=== PATIENT | female | born 1935 | race Caucasian/White ===

== ENCOUNTER → 2019-09-29 | Outpatient (CLI) | payer MEDICARE | LOC: LB.CLINIC 14:05 | PROVIDERS: ATTEND Nurse Practitioner Family | DX: I25.10 Atherosclerotic heart disease of native coronary artery without angina pectoris (principal); R42 Dizziness and giddiness; R00.1 Bradycardia, unspecified; I21.9 Acute myocardial infarction, unspecified | CPT/HCPCS: 36415; 80048; 93005 ==

== ENCOUNTER → 2019-09-30 | Outpatient (CLI) | payer MEDICARE ==
--- NOTE | 2019-09-30 13:12 | US ---
DATE OF SERVICE: 09/30/19 CLINICAL DATA: Dizziness and giddiness. DUPLEX CAROTID ULTRASOUND: RIGHT CAROTID SYSTEM: There is antegrade flow. There is mild atherosclerotic plaquing throughout the carotid system. The flow velocities are within normal limits. The findings are consistent with 0%-50% stenosis. LEFT CAROTID SYSTEM: There is antegrade flow. There is atherosclerotic plaquing throughout the carotid system. The peak systolic velocity is elevated measuring 159 cm/second in the mid-ICA. The PDV is elevated measuring 42 cm/ second. The systolic velocity ratio is also elevated measuring 2.2. The findings are consistent with 50-75% stenosis. VERTEBRAL SYSTEM: There is bilateral antegrade vertebral flow. [id number] MTDD
== END ==
LOC: LB.US 10:33
PROVIDERS: ATTEND Nurse Practitioner Family
DX: R42 Dizziness and giddiness (principal); I65.23 Occlusion and stenosis of bilateral carotid arteries
CPT/HCPCS: 93880

== ENCOUNTER 2020-07-30 12:07 | Inpatient (IN) | payer MEDICARE, OTHER ==
[2020-07-30] MEDS ORDERED: Sodium Chloride 0.9% 1,000 ML IV SCH (13:15)
--- NOTE | 2020-07-30 13:47 | EDM.PDOC ---
ED HPI GENERAL MEDICAL PROBLEM - General Chief Complaint: General Stated Complaint: ILL Time Seen by Provider: 07/30/20 12:55 Source of Information: Reports: Patient, EMS - History of Present Illness INITIAL COMMENTS - FREE TEXT/NARRATIVE: Known COVID positive patient presents with ongoing weakness. Shestates she has not had an appetite for several days and started having small amounts of diarrhea today. Denies any CP, SOB, abd pain, sore throat, rash, fever, chills, HINOJOSA, or N/V. Started bactrim for UTI, but has not taken any meds for a few days. Severity: Mild Associated Symptoms: Reports: Cough, Loss of Appetite. Denies: Chest Pain, Diaphoresis, Fever/Chills, Headaches, Nausea/Vomiting Bilateral Back Pain Score (Numeric/FACES): 3 - Related Data Allergies Allergy/AdvReac Type Severity Reaction Status Date / Time No Known Allergies Allergy Verified 07/30/20 12:58 Home Meds: Home Meds Aspirin [Children's Aspirin] 81 mg PO DAILY 10/17/13 [History] atorvaSTATin [Lipitor] 40 mg PO QPM 10/17/13 [History] carBAMazepine [Carbamazepine] 100 mg PO BID 10/17/13 [History] Albuterol Sulfate [Proair Hfa] 2 puff IH Q4HR PRN 12/24/15 [History] ALPRAZolam [Alprazolam] 0.5 mg PO BID 07/30/20 [History] Metoprolol Succinate [Toprol XL] 12.5 mg PO DAILY 07/30/20 [History] Multivitamin [Multi-Day Vitamins] 1 each PO DAILY 07/30/20 [History] Umeclidinium Brm/Vilanterol Tr [Anoro Ellipta 62.5-25 MCG] 62.5 mcg IH DAILY PRN 07/30/20 [History] ED ROS GENERAL - Review of Systems Review Of Systems: See Below Constitutional: Reports: Weakness, Fatigue, Decreased Appetite HEENT: Reports: No Symptoms Respiratory: Reports: Cough. Denies: Shortness of Breath, Wheezing Cardiovascular: Reports: No Symptoms. Denies: Edema, Orthopnea GI/Abdominal: Reports: Diarrhea, Decreased Appetite. Denies: Black Stool, Bloody Stool, Nausea, Vomiting : Reports: No Symptoms, Other (known UTI) Musculoskeletal: Reports: No Symptoms Skin: Reports: No Symptoms Neurological: Reports: No Symptoms Psychiatric: Reports: Depression ED EXAM, GENERAL - Physical Exam Exam: See Below Exam Limited By: No Limitations General Appearance: Alert, No Apparent Distress Eye Exam: Bilateral Eye: PERRL Ears: Normal External Exam, Normal Canal (cerumen occluding, denies pain) Nose: Normal Inspection Throat/Mouth: Normal Inspection, Normal Lips, Normal Oropharynx, Normal Voice, No Airway Compromise Head: Atraumatic Neck: Normal Inspection, Full Range of Motion Respiratory/Chest: No Respiratory Distress, Lungs Clear, Normal Breath Sounds Cardiovascular: Normal Peripheral Pulses, Regular Rate, Rhythm, No Edema, No JVD, Diastolic Murmur Peripheral Pulses: 3+: Radial (L), Radial (R), Posterior Tibial (L), Posterior Tibial (R), Dorsalis Pedis (L), Dorsalis Pedis (R) GI/Abdominal: Normal Bowel Sounds, Soft, Non-Tender (Female) Exam: Deferred Rectal (Female) Exam: Deferred Back Exam: Normal Inspection, Full Range of Motion. No: CVA Tenderness (R), CVA Tenderness (L) Extremities: Normal Inspection, Normal Range of Motion, Non-Tender, No Pedal Edema, Normal Capillary Refill Neurological: Alert, Oriented, Normal Cognition Psychiatric: Depressed Mood Skin Exam: Warm, Dry, Intact Lymphatic: No Adenopathy Course - Vital Signs Last Recorded V/S: Last Vital Signs Temp 98.3 F 07/30/20 15:37 Pulse 74 07/30/20 15:37 Resp 18 07/30/20 15:37 BP 127/80 07/30/20 15:37 Pulse Ox 98 07/30/20 15:37 - Orders/Labs/Meds Orders: Active Orders 24 hr Category Date Time Status EKG Documentation Completion [RC] ASDIRECTED Care 07/30/20 13:11 Active CULTURE BLOOD [BC] Stat Lab 07/30/20 13:45 Received Sodium Chloride 0.9% [Normal Saline] 1,000 ml Med 07/30/20 13:15 Active IV ASDIRECTED Medication Orders Enoxaparin Sodium (Lovenox) 40 mg SUBCUT Q12H [facility] Last Admin: 07/30/20 16:06 Dose: 40 mg Documented by: JOHN Sodium Chloride (Normal Saline) 1,000 mls @ 50 mls/hr IV ASDIRECTED [facility]ARRICK Last Admin: 07/30/20 14:24 Dose: 50 mls/hr Documented by: JOHN Doxycycline Hyclate 100 mg/ (Sodium Chloride) 100 mls @ 100 mls/hr IV Q12HR [facility] Ceftriaxone Sodium 1 gm/ (Sodium Chloride) 50 mls @ 100 mls/hr IV Q24H [facility] Last Admin: 07/30/20 16:06 Dose: 100 mls/hr Documented by: JOHN Labs: Laboratory Tests 07/30/20 07/30/20 07/30/20 Range/Units 13:06 13:10 13:10 WBC 7.5 (4.0-11.0) K/uL RBC 4.45 (3.80-5.80) M/uL Hgb 13.3 (11.5-16.5) g/dL Hct 37.9 (37.0-47.0) % MCV 85 (76-96) fL MCH 29.9 (27.0-32.0) pg MCHC 35.1 H (31.0-35.0) g/dL RDW 13.2 (11.0-16.0) % Plt Count 363 D (150-500) K/uL MPV 9.8 (6.0-10.0) fL Neut % (Auto) 77.7 H (45.0-70.0) % Lymph % (Auto) 12.4 L (20.0-40.0) % [place] % (Auto) 9.2 (3.0-10.0) % Eos % (Auto) 0.4 L (1.0-5.0) % Baso % (Auto) 0.3 (0.0-0.5) % Neut # (Auto) 5.82 (2.00-7.50) K/uL Lymph # (Auto) 0.93 L (1.50-4.00) K/uL [place] # (Auto) 0.69 (0.20-0.80) K/uL Eos # (Auto) 0.03 L (0.04-0.40) K/uL Baso # (Auto) 0.02 (0.02-0.10) K/uL ESR (0-30) mm/hr APTT (24.4-33.2) SECONDS D-Dimer, Quantitative (0-400) ng/mL Sodium 137 (136-145) mmol/L Potassium 3.4 L D (3.5-5.1) mmol/L Chloride 101 (98-107) mmol/L Carbon Dioxide 24.0 (21.0-32.0) mmol/L Anion Gap 15.4 H (5.0-15.0) mmol/L BUN 13 D (8-26) mg/dL Creatinine 1.08 H D (0.55-1.02) mg/dL Est Cr Clr Drug Dosing 31.69 mL/min Estimated GFR (MDRD) 48 L (>60) MLS/MIN BUN/Creatinine Ratio 12.0 (6-25) Glucose 103 H (74-100) mg/dL Lactic Acid (0.4-2.0) mmol/L Calcium 8.8 (8.5-10.1) mg/dL Total Bilirubin 0.5 D (0.0-1.0) mg/dL AST 25 (15-37) U/L ALT 33 (12-78) U/L Alkaline Phosphatase 83 (46-116) U/L Troponin I (0.000-0.060) ng/mL C-Reactive Protein (0.0-3.0) mg/L B-Natriuretic Peptide (0-450) pg/mL Total Protein 7.3 (6.4-8.2) g/dL Albumin 2.9 L (3.4-5.0) g/dL Globulin 4.4 H (2.2-4.2) g/dL Albumin/Globulin Ratio 0.7 L (0.8-2.0) Urine Color Yellow Urine Appearance Clear (CLEAR) Urine pH 7.0 (5.0-8.0) Ur Specific [place] 1.015 (1.003-1.030) Urine Protein Trace H (NEGATIVE) mg/dL Urine Glucose (UA) Negative (NEGATIVE) mg/dL Urine Ketones 15 H (NEGATIVE) mg/dL Urine Occult Blood Trace-intact H (NEGATIVE) Urine Nitrite Negative (NEGATIVE) Urine Bilirubin Negative (NEGATIVE) Urine Urobilinogen 0.2 (0.2-1.0) E.U./dL Ur Leukocyte Esterase Trace H (NEGATIVE) Urine RBC 0-5 H /HPF Urine WBC 10-20 H /HPF Urine WBC Clumps Few /HPF Ur Squamous Epith Cells Moderate /HPF Urine Bacteria Few /HPF 07/30/20 07/30/20 07/30/20 Range/Units 13:10 13:20 14:30 WBC (4.0-11.0) K/uL RBC (3.80-5.80) M/uL Hgb (11.5-16.5) g/dL Hct (37.0-47.0) % MCV (76-96) fL MCH (27.0-32.0) pg MCHC (31.0-35.0) g/dL RDW (11.0-16.0) % Plt Count (150-500) K/uL MPV (6.0-10.0) fL Neut % (Auto) (45.0-70.0) % Lymph % (Auto) (20.0-40.0) % [place] % (Auto) (3.0-10.0) % Eos % (Auto) (1.0-5.0) % Baso % (Auto) (0.0-0.5) % Neut # (Auto) (2.00-7.50) K/uL Lymph # (Auto) (1.50-4.00) K/uL [place] # (Auto) (0.20-0.80) K/uL Eos # (Auto) (0.04-0.40) K/uL Baso # (Auto) (0.02-0.10) K/uL ESR 67 H (0-30) mm/hr APTT (24.4-33.2) SECONDS D-Dimer, Quantitative (0-400) ng/mL Sodium (136-145) mmol/L Potassium (3.5-5.1) mmol/L Chloride (98-107) mmol/L Carbon Dioxide (21.0-32.0) mmol/L Anion Gap (5.0-15.0) mmol/L BUN (8-26) mg/dL Creatinine (0.55-1.02) mg/dL Est Cr Clr Drug Dosing mL/min Estimated GFR (MDRD) (>60) MLS/MIN BUN/Creatinine Ratio (6-25) Glucose (74-100) mg/dL Lactic Acid 1.0 (0.4-2.0) mmol/L Calcium (8.5-10.1) mg/dL Total Bilirubin (0.0-1.0) mg/dL AST (15-37) U/L ALT (12-78) U/L Alkaline Phosphatase (46-116) U/L Troponin I < 0.017 D (0.000-0.060) ng/mL C-Reactive Protein (0.0-3.0) mg/L B-Natriuretic Peptide 1210 H (0-450) pg/mL Total Protein (6.4-8.2) g/dL Albumin (3.4-5.0) g/dL Globulin (2.2-4.2) g/dL Albumin/Globulin Ratio (0.8-2.0) Urine Color Urine Appearance (CLEAR) Urine pH (5.0-8.0) Ur Specific [place] (1.003-1.030) Urine Protein (NEGATIVE) mg/dL Urine Glucose (UA) (NEGATIVE) mg/dL Urine Ketones (NEGATIVE) mg/dL Urine Occult Blood (NEGATIVE) Urine Nitrite (NEGATIVE) Urine Bilirubin (NEGATIVE) Urine Urobilinogen (0.2-1.0) E.U./dL Ur Leukocyte Esterase (NEGATIVE) Urine RBC /HPF Urine WBC /HPF Urine WBC Clumps /HPF Ur Squamous Epith Cells /HPF Urine Bacteria /HPF 07/30/20 07/30/20 07/30/20 Range/Units 14:30 14:32 14:45 WBC (4.0-11.0) K/uL RBC (3.80-5.80) M/uL Hgb (11.5-16.5) g/dL Hct (37.0-47.0) % MCV (76-96) fL MCH (27.0-32.0) pg MCHC (31.0-35.0) g/dL RDW (11.0-16.0) % Plt Count (150-500) K/uL MPV (6.0-10.0) fL Neut % (Auto) (45.0-70.0) % Lymph % (Auto) (20.0-40.0) % [place] % (Auto) (3.0-10.0) % Eos % (Auto) (1.0-5.0) % Baso % (Auto) (0.0-0.5) % Neut # (Auto) (2.00-7.50) K/uL Lymph # (Auto) (1.50-4.00) K/uL [place] # (Auto) (0.20-0.80) K/uL Eos # (Auto) (0.04-0.40) K/uL Baso # (Auto) (0.02-0.10) K/uL ESR (0-30) mm/hr APTT 24.1 L (24.4-33.2) SECONDS D-Dimer, Quantitative 1370 H (0-400) ng/mL Sodium (136-145) mmol/L Potassium (3.5-5.1) mmol/L Chloride (98-107) mmol/L Carbon Dioxide (21.0-32.0) mmol/L Anion Gap (5.0-15.0) mmol/L BUN (8-26) mg/dL Creatinine (0.55-1.02) mg/dL Est Cr Clr Drug Dosing mL/min Estimated GFR (MDRD) (>60) MLS/MIN BUN/Creatinine Ratio (6-25) Glucose (74-100) mg/dL Lactic Acid (0.4-2.0) mmol/L Calcium (8.5-10.1) mg/dL Total Bilirubin (0.0-1.0) mg/dL AST (15-37) U/L ALT (12-78) U/L Alkaline Phosphatase (46-116) U/L Troponin I (0.000-0.060) ng/mL C-Reactive Protein 160.7 H (0.0-3.0) mg/L B-Natriuretic Peptide (0-450) pg/mL Total Protein (6.4-8.2) g/dL Albumin (3.4-5.0) g/dL Globulin (2.2-4.2) g/dL Albumin/Globulin Ratio (0.8-2.0) Urine Color Urine Appearance (CLEAR) Urine pH (5.0-8.0) Ur Specific [place] (1.003-1.030) Urine Protein (NEGATIVE) mg/dL Urine Glucose (UA) (NEGATIVE) mg/dL Urine Ketones (NEGATIVE) mg/dL Urine Occult Blood (NEGATIVE) Urine Nitrite (NEGATIVE) Urine Bilirubin (NEGATIVE) Urine Urobilinogen (0.2-1.0) E.U./dL Ur Leukocyte Esterase (NEGATIVE) Urine RBC /HPF Urine WBC /HPF Urine WBC Clumps /HPF Ur Squamous Epith Cells /HPF Urine Bacteria /HPF Meds: Medications Generic Name Dose Route Start Last Admin Trade Name Freq PRN Reason Stop Dose Admin Enoxaparin Sodium 40 mg 07/30/20 16:00 07/30/20 16:06 Lovenox SUBCUT 40 mg Q12H [facility] Administration Sodium Chloride 1,000 mls @ 50 mls/hr 07/30/20 13:15 07/30/20 14:24 Normal Saline IV 50 mls/hr ASDIRECTED GARRICK Administration Doxycycline Hyclate 100 mg/ 100 mls @ 100 mls/hr 07/30/20 20:00 Sodium Chloride IV Q12HR [facility] Ceftriaxone Sodium 1 gm/ 50 mls @ 100 mls/hr 07/30/20 16:00 07/30/20 16:06 Sodium Chloride IV 100 mls/hr Q24H GARRICK Administration Departure - Departure Time of Disposition: 13:30 Disposition: Admitted As Inpatient 64 Clinical Impression: UTI, Urinary tract infectious disease, COVID-19 - Discharge Information *PRESCRIPTION DRUG MONITORING PROGRAM REVIEWED*: Not Applicable *COPY OF PRESCRIPTION DRUG MONITORING REPORT IN PATIENT SURINDER: Not Applicable Sepsis Event Note (ED) - Evaluation Sepsis Screening Result: No Definite Risk - Focused Exam Vital Signs: Vital Signs Temp Pulse Resp BP Pulse Ox 07/30/20 14:30 98.3 F 77 18 127/86 98 07/30/20 12:58 98.3 F 79 20 172/71 H 97 - My Orders Last 24 Hours: My Active Orders 07/30/20 13:11 EKG Documentation Completion [RC] ASDIRECTED 07/30/20 13:15 Sodium Chloride 0.9% [Normal Saline] 1,000 ml IV ASDIRECTED 07/30/20 13:45 CULTURE BLOOD [BC] Stat - Assessment/Plan Last 24 Hours: My Active Orders 07/30/20 13:11 EKG Documentation Completion [RC] ASDIRECTED 07/30/20 13:15 Sodium Chloride 0.9% [Normal Saline] 1,000 ml IV ASDIRECTED 07/30/20 13:45 CULTURE BLOOD [BC] Stat Plan: Patient will be admitted inpatient for
--- NOTE | 2020-07-30 14:24 | CR ---
DATE OF SERVICE: 07/30/2020 CLINICAL DATA: Weakness, covid AP Chest: Comparison is made to a prior exam dated 15 September 2014. The patient is status post median sternotomy. The heart size is normal. There is calcification of the aortic arch. The lungs are hyperexpanded. There are calcified nodules in both lungs consistent with prior granulomatous disease. There are subtle ground-glass opacities in the right lung base and right mid lung suspicious for pneumonia/pneumonitis. The lungs are otherwise clear. No pneumothorax. No pleural effusions. No other significant findings. MTDD
[2020-07-30] MEDS ORDERED: Enoxaparin 40 MG/0.4 ML Syringe SUBCUT SCH (16:00)
[2020-07-30] MEDS ORDERED: cefTRIAXone 1 GM in Sodium Chloride 0.9% 50 ML IV SCH (16:00)
--- NOTE | 2020-07-30 16:27 | PCM.PN ---
- General Info Date of Service: 07/30/20 Subjective Update: Patient to be transferred to [facility] unit, accepted by Dr. Mukherjee. He requests additional labs: LDH, ferritin, and procalcitonin. Functional Status: Reports: Pain Controlled - Review of Systems General: Reports: Weakness, Fatigue, Appetite HEENT: Reports: No Symptoms Pulmonary: Reports: Cough. Denies: Shortness of Breath Cardiovascular: Denies: No Symptoms, Chest Pain, Dyspnea on Exertion Gastrointestinal: Reports: Diarrhea Genitourinary: Reports: No Symptoms Musculoskeletal: Reports: No Symptoms Skin: Reports: No Symptoms Neurological: Reports: No Symptoms Psychiatric: Reports: No Symptoms - Patient Data Vitals - Most Recent: Last Vital Signs Temp 98.3 F 07/30/20 15:37 Pulse 74 07/30/20 15:37 Resp 18 07/30/20 15:37 BP 127/80 07/30/20 15:37 Pulse Ox 98 07/30/20 15:37 Weight - Most Recent: 157 lb Lab Results Last 24 Hours: Laboratory Results - last 24 hr 07/30/20 07/30/20 07/30/20 Range/Units 13:06 13:10 13:10 WBC 7.5 (4.0-11.0) K/uL RBC 4.45 (3.80-5.80) M/uL Hgb 13.3 (11.5-16.5) g/dL Hct 37.9 (37.0-47.0) % MCV 85 (76-96) fL MCH 29.9 (27.0-32.0) pg MCHC 35.1 H (31.0-35.0) g/dL RDW 13.2 (11.0-16.0) % Plt Count 363 D (150-500) K/uL MPV 9.8 (6.0-10.0) fL Neut % (Auto) 77.7 H (45.0-70.0) % Lymph % (Auto) 12.4 L (20.0-40.0) % [place] % (Auto) 9.2 (3.0-10.0) % Eos % (Auto) 0.4 L (1.0-5.0) % Baso % (Auto) 0.3 (0.0-0.5) % Neut # (Auto) 5.82 (2.00-7.50) K/uL Lymph # (Auto) 0.93 L (1.50-4.00) K/uL [place] # (Auto) 0.69 (0.20-0.80) K/uL Eos # (Auto) 0.03 L (0.04-0.40) K/uL Baso # (Auto) 0.02 (0.02-0.10) K/uL ESR (0-30) mm/hr APTT (24.4-33.2) SECONDS D-Dimer, Quantitative (0-400) ng/mL Sodium 137 (136-145) mmol/L Potassium 3.4 L D (3.5-5.1) mmol/L Chloride 101 (98-107) mmol/L Carbon Dioxide 24.0 (21.0-32.0) mmol/L Anion Gap 15.4 H (5.0-15.0) mmol/L BUN 13 D (8-26) mg/dL Creatinine 1.08 H D (0.55-1.02) mg/dL Est Cr Clr Drug Dosing 31.69 mL/min Estimated GFR (MDRD) 48 L (>60) MLS/MIN BUN/Creatinine Ratio 12.0 (6-25) Glucose 103 H (74-100) mg/dL Lactic Acid (0.4-2.0) mmol/L Calcium 8.8 (8.5-10.1) mg/dL Total Bilirubin 0.5 D (0.0-1.0) mg/dL AST 25 (15-37) U/L ALT 33 (12-78) U/L Alkaline Phosphatase 83 (46-116) U/L Troponin I (0.000-0.060) ng/mL C-Reactive Protein (0.0-3.0) mg/L B-Natriuretic Peptide (0-450) pg/mL Total Protein 7.3 (6.4-8.2) g/dL Albumin 2.9 L (3.4-5.0) g/dL Globulin 4.4 H (2.2-4.2) g/dL Albumin/Globulin Ratio 0.7 L (0.8-2.0) Urine Color Yellow Urine Appearance Clear (CLEAR) Urine pH 7.0 (5.0-8.0) Ur Specific [place] 1.015 (1.003-1.030) Urine Protein Trace H (NEGATIVE) mg/dL Urine Glucose (UA) Negative (NEGATIVE) mg/dL Urine Ketones 15 H (NEGATIVE) mg/dL Urine Occult Blood Trace-intact H (NEGATIVE) Urine Nitrite Negative (NEGATIVE) Urine Bilirubin Negative (NEGATIVE) Urine Urobilinogen 0.2 (0.2-1.0) E.U./dL Ur Leukocyte Esterase Trace H (NEGATIVE) Urine RBC 0-5 H /HPF Urine WBC 10-20 H /HPF Urine WBC Clumps Few /HPF Ur Squamous Epith Cells Moderate /HPF Urine Bacteria Few /HPF 07/30/20 07/30/20 07/30/20 Range/Units 13:10 13:20 14:30 WBC (4.0-11.0) K/uL RBC (3.80-5.80) M/uL Hgb (11.5-16.5) g/dL Hct (37.0-47.0) % MCV (76-96) fL MCH (27.0-32.0) pg MCHC (31.0-35.0) g/dL RDW (11.0-16.0) % Plt Count (150-500) K/uL MPV (6.0-10.0) fL Neut % (Auto) (45.0-70.0) % Lymph % (Auto) (20.0-40.0) % [place] % (Auto) (3.0-10.0) % Eos % (Auto) (1.0-5.0) % Baso % (Auto) (0.0-0.5) % Neut # (Auto) (2.00-7.50) K/uL Lymph # (Auto) (1.50-4.00) K/uL [place] # (Auto) (0.20-0.80) K/uL Eos # (Auto) (0.04-0.40) K/uL Baso # (Auto) (0.02-0.10) K/uL ESR 67 H (0-30) mm/hr APTT (24.4-33.2) SECONDS D-Dimer, Quantitative (0-400) ng/mL Sodium (136-145) mmol/L Potassium (3.5-5.1) mmol/L Chloride (98-107) mmol/L Carbon Dioxide (21.0-32.0) mmol/L Anion Gap (5.0-15.0) mmol/L BUN (8-26) mg/dL Creatinine (0.55-1.02) mg/dL Est Cr Clr Drug Dosing mL/min Estimated GFR (MDRD) (>60) MLS/MIN BUN/Creatinine Ratio (6-25) Glucose (74-100) mg/dL Lactic Acid 1.0 (0.4-2.0) mmol/L Calcium (8.5-10.1) mg/dL Total Bilirubin (0.0-1.0) mg/dL AST (15-37) U/L ALT (12-78) U/L Alkaline Phosphatase (46-116) U/L Troponin I < 0.017 D (0.000-0.060) ng/mL C-Reactive Protein (0.0-3.0) mg/L B-Natriuretic Peptide 1210 H (0-450) pg/mL Total Protein (6.4-8.2) g/dL Albumin (3.4-5.0) g/dL Globulin (2.2-4.2) g/dL Albumin/Globulin Ratio (0.8-2.0) Urine Color Urine Appearance (CLEAR) Urine pH (5.0-8.0) Ur Specific [place] (1.003-1.030) Urine Protein (NEGATIVE) mg/dL Urine Glucose (UA) (NEGATIVE) mg/dL Urine Ketones (NEGATIVE) mg/dL Urine Occult Blood (NEGATIVE) Urine Nitrite (NEGATIVE) Urine Bilirubin (NEGATIVE) Urine Urobilinogen (0.2-1.0) E.U./dL Ur Leukocyte Esterase (NEGATIVE) Urine RBC /HPF Urine WBC /HPF Urine WBC Clumps /HPF Ur Squamous Epith Cells /HPF Urine Bacteria /HPF 07/30/20 07/30/20 07/30/20 Range/Units 14:30 14:32 14:45 WBC (4.0-11.0) K/uL RBC (3.80-5.80) M/uL Hgb (11.5-16.5) g/dL Hct (37.0-47.0) % MCV (76-96) fL MCH (27.0-32.0) pg MCHC (31.0-35.0) g/dL RDW (11.0-16.0) % Plt Count (150-500) K/uL MPV (6.0-10.0) fL Neut % (Auto) (45.0-70.0) % Lymph % (Auto) (20.0-40.0) % [place] % (Auto) (3.0-10.0) % Eos % (Auto) (1.0-5.0) % Baso % (Auto) (0.0-0.5) % Neut # (Auto) (2.00-7.50) K/uL Lymph # (Auto) (1.50-4.00) K/uL [place] # (Auto) (0.20-0.80) K/uL Eos # (Auto) (0.04-0.40) K/uL Baso # (Auto) (0.02-0.10) K/uL ESR (0-30) mm/hr APTT 24.1 L (24.4-33.2) SECONDS D-Dimer, Quantitative 1370 H (0-400) ng/mL Sodium (136-145) mmol/L Potassium (3.5-5.1) mmol/L Chloride (98-107) mmol/L Carbon Dioxide (21.0-32.0) mmol/L Anion Gap (5.0-15.0) mmol/L BUN (8-26) mg/dL Creatinine (0.55-1.02) mg/dL Est Cr Clr Drug Dosing mL/min Estimated GFR (MDRD) (>60) MLS/MIN BUN/Creatinine Ratio (6-25) Glucose (74-100) mg/dL Lactic Acid (0.4-2.0) mmol/L Calcium (8.5-10.1) mg/dL Total Bilirubin (0.0-1.0) mg/dL AST (15-37) U/L ALT (12-78) U/L Alkaline Phosphatase (46-116) U/L Troponin I (0.000-0.060) ng/mL C-Reactive Protein 160.7 H (0.0-3.0) mg/L B-Natriuretic Peptide (0-450) pg/mL Total Protein (6.4-8.2) g/dL Albumin (3.4-5.0) g/dL Globulin (2.2-4.2) g/dL Albumin/Globulin Ratio (0.8-2.0) Urine Color Urine Appearance (CLEAR) Urine pH (5.0-8.0) Ur Specific [place] (1.003-1.030) Urine Protein (NEGATIVE) mg/dL Urine Glucose (UA) (NEGATIVE) mg/dL Urine Ketones (NEGATIVE) mg/dL Urine Occult Blood (NEGATIVE) Urine Nitrite (NEGATIVE) Urine Bilirubin (NEGATIVE) Urine Urobilinogen (0.2-1.0) E.U./dL Ur Leukocyte Esterase (NEGATIVE) Urine RBC /HPF Urine WBC /HPF Urine WBC Clumps /HPF Ur Squamous Epith Cells /HPF Urine Bacteria /HPF Med Orders - Current: Current Medications Enoxaparin Sodium (Lovenox) 40 mg SUBCUT Q12H [facility] Last Admin: 07/30/20 16:06 Dose: 40 mg Documented by: Sodium Chloride (Normal Saline) 1,000 mls @ 50 mls/hr IV ASDIRECTED [facility] Last Admin: 07/30/20 14:24 Dose: 50 mls/hr Documented by: Doxycycline Hyclate 100 mg/ (Sodium Chloride) 100 mls @ 100 mls/hr IV Q12HR [facility] Ceftriaxone Sodium 1 gm/ (Sodium Chloride) 50 mls @ 100 mls/hr IV Q24H [facility] Last Admin: 07/30/20 16:06 Dose: 100 mls/hr Documented by: Sepsis Event Note - Evaluation Sepsis Screening Result: No Definite Risk - Focused Exam Vital Signs: Vital Signs Temp Pulse Resp BP Pulse Ox 07/30/20 15:37 98.3 F 74 18 127/80 98 07/30/20 14:30 98.3 F 77 18 127/86 98 07/30/20 12:58 98.3 F 79 20 172/71 H 97 - Problem List Review Problem List Initiated/Reviewed/Updated: Yes - My Orders Last 24 Hours: My Active Orders 07/30/20 13:11 EKG Documentation Completion [RC] ASDIRECTED 07/30/20 13:15 Sodium Chloride 0.9% [Normal Saline] 1,000 ml IV ASDIRECTED 07/30/20 13:45 CULTURE BLOOD [BC] Stat 07/30/20 14:52 Admission Status [Patient Status] [ADT] Routine 07/30/20 16:00 Enoxaparin [Lovenox] 40 mg SUBCUT Q12H cefTRIAXone [Rocephin] 1 gm Sodium Chloride 0.9% [Normal Saline] 50 ml IV Q24H 07/30/20 16:12 Chest w Cont [CT] Routine LACTATE DEHYDROGENASE,LDH [CHEM] Routine 07/30/20 20:00 Doxycycline [Vibramycin] 100 mg Sodium Chloride 0.9% [Normal Saline] 100 ml IV Q12HR - Plan Plan:: Plan to start antibiotics and lovenox prior to transport.
--- NOTE | 2020-07-30 18:12 | PCM.SN.2 ---
- Free Text/Narrative Note: Spoke with Dr. Mukherjee with negative CT results. Transportation being arranged.
[2020-07-30] MEDS ORDERED: Doxycycline 100 MG in Sodium Chloride 0.9% 100 ML IV SCH (20:00)
--- NOTE | 2020-07-31 17:37 | CT ---
CLINICAL DATA: Elevated D-dimer. ENHANCED CHEST CT, 2019: Multislice acquisition through the chest with IV contrast was performed. Comparison is made to a prior exam dated 09 December 2014. No evidence of PE. No pneumothorax. No pleural effusions. No evidence of aortic aneurysm or dissection. There are poorly defined ground-glass opacities with consolidation within the right upper lobe, right middle lobe, and right lower lobe. There is also a subtle ground-glass opacity noted in the left lower lobe just above the left hemidiaphragm. Pneumonia suspected. Viral pneumonia should be considered. The heart size is normal. No significant pericardial effusion. There are coronary artery calcifications. There is an enlarged precarinal lymph node. There is also an enlarged lymph node in the subcarinal middle mediastinum. No hilar adenopathy. There is degenerative disk disease throughout the thoracic spine. No other significant findings. IMPRESSION: Abnormal exam. See above. Job: [id number] [facility]
== END 2020-07-30 19:08 | DRG 178 ==
LOC: LB.ED 12:07 → LB.MS 14:52
PROVIDERS: ADMIT Nurse Practitioner; ATTEND Nurse Practitioner
DX: U07.1 COVID-19 (principal); N39.0 Urinary tract infection, site not specified; Z79.82 Long term (current) use of aspirin; Z79.899 Other long term (current) drug therapy
CPT/HCPCS: 36415; 71045; 80053; 81001; 83605; 83880; 84484; 85025; 85379; 85651; 85730; 86140; 87040; 93005; J7030; 71260; 83615; 96360; 99222; 99285-25; A0425; A0429; A0888-GY; J0696; J1650; J7050